=== PATIENT | female | born 1955 | race Caucasian/White ===

== ENCOUNTER 2017-12-01 09:15 | Outpatient (CLI) | payer BC | END 2017-12-01 19:55 | disposition home or self-care (01) | LOC: SMA 09:15 | PROVIDERS: ATTEND Internal Medicine | DX: Z12.31 Encounter for screening mammogram for malignant neoplasm of breast (principal); R92.1 Mammographic calcification found on diagnostic imaging of breast | CPT/HCPCS: 77067 ==

== ENCOUNTER 2018-12-08 08:33 | Outpatient (CLI) | payer BC | END 2018-12-08 21:17 | disposition home or self-care (01) | LOC: SMA 08:33 | PROVIDERS: ATTEND Internal Medicine | DX: Z12.31 Encounter for screening mammogram for malignant neoplasm of breast (principal) | CPT/HCPCS: 77067 ==

== ENCOUNTER 2020-12-18 09:51 | Outpatient (CLI) | payer BC | END 2020-12-18 20:30 | disposition home or self-care (01) | LOC: SMA 09:51 | DX: Z12.31 Encounter for screening mammogram for malignant neoplasm of breast (principal); E03.9 Hypothyroidism, unspecified | CPT/HCPCS: 77067 ==

== ENCOUNTER 2022-07-18 09:41 | Outpatient (CLI) | payer BC | END 2022-07-18 19:14 | disposition home or self-care (01) | LOC: SMA 09:41 | PROVIDERS: ATTEND Internal Medicine | DX: Z12.31 Encounter for screening mammogram for malignant neoplasm of breast (principal); M85.811 Other specified disorders of bone density and structure, right shoulder; M25.511 Pain in right shoulder | CPT/HCPCS: 73030; 77067 ==

== ENCOUNTER 2024-05-13 08:34 | Outpatient (CLI) | payer OTHER, BC | END 2024-05-13 19:53 | disposition home or self-care (01) | LOC: SMA 08:34 | PROVIDERS: ATTEND Internal Medicine | DX: Z12.31 Encounter for screening mammogram for malignant neoplasm of breast (principal) | CPT/HCPCS: 77067 ==

== ENCOUNTER 2024-06-06 09:49 | Outpatient (CLI) | payer OTHER, BC | END 2024-06-06 18:52 | disposition home or self-care (01) | LOC: SMA 09:49 | PROVIDERS: ATTEND Internal Medicine | DX: N64.89 Other specified disorders of breast (principal); R92.332 Mammographic heterogeneous density, left breast; R92.2 Inconclusive mammogram | CPT/HCPCS: 77065 ==